=== PATIENT | female | born 1940 | race Caucasian/White ===

== ENCOUNTER 2018-12-29 08:50 | Inpatient (IN) ==
--- NOTE | 2018-12-12 16:07 | PAT Medication Instructions ---
Medication Instructions Date of Service December 12, 2018 Home Medications Prilocaine Cream 1 dose TOPICAL UD PRN acetaminophen [Acetaminophen Extra Strength] 1,000 mg PO UD PRN albuterol sulfate 1 - 2 puff INHALATION UD PRN baclofen 10 mg PO BID biotin 5,000 mcg PO DAILY cholecalciferol (vitamin D3) [Vitamin D3] 3,000 unit PO DAILY diphenhydramine HCl [Benadryl] 50 mg PO HS docusate sodium [Stool Softener] 100 mg PO BID duloxetine 60 mg PO QAM furosemide 80 mg PO BID gabapentin 100 mg PO BID gabapentin 600 mg PO BID insulin aspart U-100 [Novolog PenFill U-100 Insulin] 1 sliding scale dose SUBCUT USEASDIRECTD insulin glargine [Lantus Solostar U-100 Insulin] 70 unit SUBCUT QAM lidocaine 1 applic TOPICAL UD PRN metoprolol tartrate 12.5 mg PO BID mirtazapine 7.5 mg PO HS nitroglycerin 0.4 mg SUBLINGUAL UD PRN oxycodone-acetaminophen 1 tab PO TID PRN polyethylene glycol 3350 [Miralax] 17 g PO DAILY potassium chloride 8 meq PO BID prochlorperazine maleate 5 mg PO UD PRN simvastatin 40 mg PO HS trazodone 50 mg PO HS Continue as directed nitroglycerin 0.4 mg SUBLINGUAL UD PRN (if needed) STOP taking 2 weeks before surgery (or as soon as possible if surgery is within 2 weeks) biotin 5,000 mcg PO DAILY STOP taking 24 hours before surgery Prilocaine Cream 1 dose TOPICAL UD PRN lidocaine 1 applic TOPICAL UD PRN DO NOT take the morning of surgery baclofen 10 mg PO BID cholecalciferol (vitamin D3) [Vitamin D3] 3,000 unit PO DAILY docusate sodium [Stool Softener] 100 mg PO BID furosemide 80 mg PO BID insulin aspart U-100 [Novolog PenFill U-100 Insulin] 1 sliding scale dose SUBCUT USEASDIRECTD polyethylene glycol 3350 [Miralax] 17 g PO DAILY potassium chloride 8 meq PO BID Take morning of surgery With a small sip of water, OTHERWISE NOTHING TO EAT OR DRINK AFTER MIDNIGHT: acetaminophen [Acetaminophen Extra Strength] 1,000 mg PO UD PRN (if needed) albuterol sulfate 1 - 2 puff INHALATION UD PRN (use if needed; please bring with you to hospital day of surgery if possible) duloxetine 60 mg PO QAM gabapentin 100 mg PO BID gabapentin 600 mg PO BID metoprolol tartrate 12.5 mg PO BID oxycodone-acetaminophen 1 tab PO TID PRN (okay to take up to 4 hours prior to surgery if needed) prochlorperazine maleate 5 mg PO UD PRN (if needed) Take evening before surgery acetaminophen [Acetaminophen Extra Strength] 1,000 mg PO UD PRN (if needed) albuterol sulfate 1 - 2 puff INHALATION UD PRN (if needed) baclofen 10 mg PO BID diphenhydramine HCl [Benadryl] 50 mg PO HS docusate sodium [Stool Softener] 100 mg PO BID furosemide 80 mg PO BID gabapentin 100 mg PO BID gabapentin 600 mg PO BID insulin aspart U-100 [Novolog PenFill U-100 Insulin] 1 sliding scale dose SUBCUT USEASDIRECTD metoprolol tartrate 12.5 mg PO BID mirtazapine 7.5 mg PO HS oxycodone-acetaminophen 1 tab PO TID PRN (okay to take up to 4 hours prior to surgery if needed) potassium chloride 8 meq PO BID prochlorperazine maleate 5 mg PO UD PRN (if needed) simvastatin 40 mg PO HS trazodone 50 mg PO HS Insulin Dependent Diabetic Patients * Test your blood sugar the morning of surgery * If Blood Sugar is GREATER THAN 150, take HALF of your regular dose of: insulin glargine [Lantus Solostar U-100 Insulin] 70 unit SUBCUT QAM (take 35 units) * If Blood Sugar is LESS THAN 150, DO NOT TAKE ANY:insulin glargine [Lantus Solostar U-100 Insulin] 70 unit SUBCUT QAM (take 35 units) Other Notes If you have any questions please call us at [phone] or [phone] or [phone] or [phone]
--- NOTE | 2018-12-15 13:07 | Anesthesiology Consultation ---
Date of Service December 15, 2018 Assessment & Plan (1) Encounter for pre-operative examination: - Cardiology: 12/02/18: "Overall stable today from a cardiac perspective. She has no new cardiac issues in the interval. With continue her current cardiac me dications. No medication changes were recommended today. She has upcoming back surgery with Dr. Gutierrez at [facility] and she is cleared to move ahead with this procedure. " - Check [facility] AM DOS Chart Review Chart Review: Pending: Refer to Additional Notes / Consult section (pending preop testing (labs)) and Patient seen in Pre Admission Testing Teaching & Discussion Pre-Anesthesia Teaching/Discussion Notes: Instructed NPO after midnight before surgery,except medications with 15 cc of water. Medication instructions provided according to the PAT guidelines. History Surgery Operation Date: 12/29/18 07:45 Proposed Procedures p L2-L3, L3-L4 Transforaminal Lumbar Interbody Fusion with Spinal Cord Monitoring - Adan Gutierrez, DO Height/Weight Height: 5 ft Weight: 64.7 kg Allergies Allergy/AdvReac Type Severity Reaction Status Date / Time Bactrim Allergy Unknown RASH Verified 07/01/14 05:51 capsaicin Allergy Unknown localized Verified 12/15/18 13:28 swelling and SOB diclofenac Allergy Unknown localized Verified 12/15/18 13:28 swelling and SOB Diclopak Allergy Unknown localized Verified 07/01/14 05:51 SWELLING and SOB iodine Allergy Unknown skin Verified 12/15/18 13:28 blisters isopropyl alcohol Allergy Unknown localized Verified 12/15/18 13:28 swelling and SOB methylprednisolone Allergy Unknown swelling, Verified 12/15/18 13:28 SOB, rash Penicillins Allergy Unknown rash, Verified 12/15/18 13:28 swelling, trouble breathing pregabalin Allergy Unknown airway Verified 12/10/18 15:31 swelling propranolol Allergy Unknown RASH Verified 12/10/18 15:31 propylene glycol Allergy Unknown localized Verified 12/15/18 13:28 swelling and SOB shellfish derived Allergy Unknown airway Verified 12/15/18 13:28 swelling, n/v sulfamethoxazole Allergy Unknown RASH Verified 12/10/18 15:31 tetracycline Allergy Unknown RED RASH Verified 12/10/18 15:31 trimethoprim Allergy Unknown RASH Verified 12/10/18 15:31 verapamil Allergy Unknown RASH Verified 12/10/18 15:31 aspirin AdvReac Unknown n/v Verified 12/10/18 15:31 codeine AdvReac Unknown n/v Verified 12/10/18 15:31 morphine AdvReac Unknown headache, Verified 12/15/18 13:28 nausea NSAIDS (Non-Steroidal AdvReac Unknown advised to Verified 12/15/18 13:28 Anti-Inflamma avoid- CKD stage III A&D OINMENT Allergy Unknown SWELLING Uncoded 12/10/18 15:31 AND HIVES CLEANING SUPPLIES Allergy Unknown RASH Uncoded 12/10/18 15:32 SOAPS Allergy Unknown RASH Uncoded 12/10/18 15:31 STEROIDS Allergy Unknown SWELLING, Uncoded 12/10/18 16:23 SOB AND RASH Medications Home Medications Medication Instructions Recorded Confirmed Last Taken Prilocaine Cream 1 dose TOPICAL UD PRN 12/10/18 12/10/18 Unknown acetaminophen [Acetaminophen Extra 1,000 mg PO UD PRN 12/10/18 12/10/18 Unknown Strength] albuterol sulfate 1 - 2 puff INHALATION UD PRN 12/10/18 12/10/18 Unknown baclofen 10 mg PO BID 12/10/18 12/10/18 Unknown biotin 5,000 mcg PO DAILY 12/10/18 12/10/18 Unknown cholecalciferol (vitamin D3) 3,000 unit PO DAILY 12/10/18 12/10/18 Unknown [Vitamin D3] diphenhydramine HCl [Benadryl] 50 mg PO HS 12/10/18 12/10/18 Unknown docusate sodium [Stool Softener] 100 mg PO BID 12/10/18 12/10/18 Unknown duloxetine 60 mg PO QAM 12/10/18 12/10/18 Unknown furosemide 80 mg PO BID 12/10/18 12/10/18 Unknown gabapentin 100 mg PO BID 12/10/18 12/10/18 Unknown gabapentin 600 mg PO BID 12/10/18 12/10/18 Unknown insulin aspart U-100 [Novolog 1 sliding scale dose SUBCUT 12/10/18 12/10/18 Unknown PenFill U-100 Insulin] USEASDIRECTD insulin glargine [Lantus Solostar 70 unit SUBCUT QAM 12/10/18 12/10/18 12/10/18 U-100 Insulin] lidocaine 1 applic TOPICAL UD PRN 12/10/18 12/10/18 Unknown metoprolol tartrate 12.5 mg PO BID 12/10/18 12/10/18 Unknown mirtazapine 7.5 mg PO HS 12/10/18 12/10/18 Unknown nitroglycerin 0.4 mg SUBLINGUAL UD PRN 12/10/18 12/10/18 Unknown oxycodone-acetaminophen 1 tab PO TID PRN 12/10/18 12/10/18 Unknown polyethylene glycol 3350 [Miralax] 17 g PO DAILY 12/10/18 12/10/18 Unknown potassium chloride 8 meq PO BID 12/10/18 12/10/18 Unknown prochlorperazine maleate 5 mg PO UD PRN 12/10/18 12/10/18 Unknown simvastatin 40 mg PO HS 12/10/18 12/10/18 Unknown trazodone 50 mg PO HS 12/10/18 12/10/18 Unknown Past Medical History Medical History Asthma stable CAD (coronary artery disease) non-obstructive COPD (chronic obstructive pulmonary disease) stable Diabetes Hiatal hernia History of hysterectomy History of pancreatitis years ago s/p colon resection History of pulmonary embolism ?2007 Hyperlipidemia Hypertension Neuropathy B/L RLE, toes Scoliosis Spinal stenosis Stage 3 chronic kidney disease Past Family History Family History Son Family history of diabetes mellitus in daughter Son Family history of diabetes mellitus in daughter Past Surgical History Surgical History History of back surgery MULTIPLE FUSIONS History of cardiac cath X3; MOST RECENT : 2014= NO STENTS History of cardiac radiofrequency ablation History of cholecystectomy History of colon resection 2/2 multiple colon polyps History of colonoscopy History of endoscopy History of hernia surgery History of neck surgery "BONE" EXCISION History of shoulder surgery X2 LEFT History of surgery PAIN PUMP AND SINCE REMOVED History of surgery on right wrist X7 History of tubal ligation Social History Smoking Status: Former smoker Do You Dip or Chew Tobacco: No Smoking End Date: QUIT 2004 Hx Alcohol Use: No substance use type: prescription drug Review of Systems Rare coughing, wheezing felt r/t asthma. Patient denies chest pain, shortness of breath, palpitations. Physical Exam Vital Signs VITALS BP 130/70 P 68 TEMP 98.3 SP02 94%RA RESP 18 PHYSICAL Mildly decreased cervical extension s/p cervical surgery/+cervicalgia Full TMJ range of motion. TMD 3 finger breaths Mallampati Score 1 Dentition: full dentures upper/lower; edentulous Lungs: diminished breath sounds Cardiac: regular rate and rhythm, I/ systolic murmur Spine: normal Carotid arteries: negative bruit Extremities: no edema Testing Electrocardiogram Date: 12/02/18 SR with occasional PAC's. Stress Test Date: 10/27/15 Type: DSE DSE "normal" without resting LV wall motion abnormalities or inducible ischemia. 97% MPHR. No significant arrhythmias noted. Rest EF 65%. Mild AV sclerosis. Mild mitral annular calcification. Cardiac Catheterization Date: 10/13/14 Left main angiographically normal. Mild to moderate intimal disease of the mid to distal cx, LAD. 20-30% stenosis proximal and mid RCA. Nonobstructive coronary disease. Noncardiac chest pain. Other Testing Chest CT: 09/10/18: Right upper lobe calcified granuloma along the major fissure. Left lower lobe punctate calcified granuloma. No suspicious pulmonary nodules. Large airways patent. Anterolisthesis of L4 on L5. Mild levoscoliosis of the lumbar segment. No findings to explain epigastric pain. No suspicious pulmonary nodules.
[2018-12-15 15:43] LABS: Basophils # (auto) 0.03 K/uL (0-0.2); Basophils % (auto) 0.4 %; Eosinophils # (auto) 0.25 K/uL (0-0.5); Eosinophils % (auto) 3.5 %; Hematocrit (blood only) 37.3 % (37-47); Hemoglobin 12.2 g/dL (12.0-16.0); Immature Granulocytes # (auto) 0.02 K/uL (0.00-0.02); Immature Granulocytes % (auto) 0.3 %; Lymphocytes # (auto) 3.56 K/uL (1.2-3.4); Lymphocytes % (auto) 49.3 %; Mean Corpuscular Hemoglobin 31.7 pg (25-34); Mean Corpuscular Hgb Conc 32.7 g/dL (32-36); Mean Corpuscular Volume 96.9 fL (80-100); Mean Platelet Volume 10.1 fL (7.4-10.4); Monocytes # (auto) 0.73 K/uL (0.11-0.59); Monocytes % (auto) 10.1 %; Neutrophils # (auto) 2.63 K/uL (1.4-6.5); Neutrophils % (auto) 36.4 %; Platelet Count 182 K/uL (130-400); RDW Coefficient of Variation 13.1 % (11.5-14.5); Red Blood Count 3.85 M/uL (4.2-5.4); White Blood Count 7.22 K/uL (4.8-10.8)
[2018-12-15 15:44] LABS: BUN Creatinine Ratio 16.9 (10-20); Creatinine Clr Calc Pharmacy 29.5 ml/min; Est GFR (African American) 44.2; Est GFR (Non-African American) 38.1; Potassium 3.9 mmol/L (3.5-5.1)
[2018-12-15 15:51] LABS: Partial Thromboplastin Ratio 0.8; Partial Thromboplastin Time 22.8 Seconds (21.0-31.0); Prothrombin Time 10.2 Seconds (9.0-12.0)
[2018-12-15 16:06] LABS: Appearance Urine Clear (Clear); Bacteria Urine Automated Negative (Negative); Bilirubin Urine Negative (Negative); Blood Urine Negative (Negative); Cast Urine Automated 0 /lpf (0-5); Color Urine Yellow; Epithelial Cell Urine Auto 0-5 /lpf (0-5); Glucose Urine UA Trace (Negative); Ketones Urine Negative (Negative); Leukocyte Esterase Urine Trace (Negative); Nitrite Urine Negative (Negative); Protein Urine Negative (Negative); RBC Urine Automated 0-4 /hpf (0-4); Specific Gravity Urine 1.011 (1.000-1.030); Urobilinogen Urine Negative (Negative)
[2018-12-16 05:42] LABS: Estimated Average Glucose 206 mg/dl; Hemoglobin A1C 8.8 % (4.5-5.6)
[~2018-12-29 08:50] MED LIST: CEFAZOLIN 1000MG 1,000 MG/7.5 ML SYR IV SCH; CLINDAMYCIN 600 MG/54 ML BAG IV SCH; CeleBREX 200 MG CAP PO SCH; GABAPENTIN 300 MG CAP PO SCH; LR 15ML/HR IV SCH
[2018-12-29] MEDS ORDERED: HYDROmorphone INJ 2 MG/ML SYR/VIAL ONE (09:14)
[2018-12-29] MEDS ORDERED: fentaNYL citrate 100 MCG/2 ML VIAL ONE (09:14)
[2018-12-29] MEDS ORDERED: KETAMINE HCL INJ 50 MG/ML 10 ML VIAL ONE (09:14)
[2018-12-29] MEDS ORDERED: ROCURONIUM BROMIDE 10 MG/ML 5 ML VIAL ONE (09:17)
[2018-12-29] MEDS ORDERED: PROPOFOL IV EMULSION 10 MG/ML 20 ML VIAL IV ONE (09:17)
[2018-12-29] MEDS ORDERED: NEOSTIGMINE METHYLSULFATE 1 MG/ML 10ML VIAL ONE (09:17)
[2018-12-29] MEDS ORDERED: GLYCOPYRROLATE 0.2 MG/ML VIAL ONE (09:17)
[2018-12-29] MEDS ORDERED: LIDOCAINE HCL 2% 2 ML VIAL/AMP(20MG/ML) INFIL ONE (09:17)
[2018-12-29] MEDS ORDERED: ONDANSETRON INJ 2 MG/ML 2 ML VIAL ONE (09:17)
--- NOTE | 2018-12-29 09:38 | History & Physical Bridge Note ---
Date of Service December 29, 2018 History & Physical Bridge Note I have examined the patient, reviewed the History & Physical and in the interval since the performance of the History & Physical I have noted the following changes of clinical significance: no changes noted
--- NOTE | 2018-12-29 09:39 | History & Physical Report ---
Date of Service December 29, 2018 Assessment & Plan (1) Spinal stenosis, lumbar region with neurogenic claudication: Transforaminal lumbar interbody fusion L2-L4. Present on Admission?: Yes History of Present Illness Chief Complaint: Back and leg pain Primary Care Provider: Elana Whittington MD This is a 78-year-old female who presents with chronic persistent back and leg pain. Failing extensive course of nonoperative care is here for surgical intervention. Allergies Allergy/AdvReac Type Severity Reaction Status Date / Time Bactrim Allergy Unknown RASH Verified 07/01/14 05:51 capsaicin Allergy Unknown localized Verified 12/29/18 09:31 swelling and SOB diclofenac Allergy Unknown localized Verified 12/29/18 09:31 swelling and SOB Diclopak Allergy Unknown localized Verified 07/01/14 05:51 SWELLING and SOB iodine Allergy Unknown skin Verified 12/29/18 09:31 blisters isopropyl alcohol Allergy Unknown localized Verified 12/29/18 09:31 swelling and SOB methylprednisolone Allergy Unknown swelling, Verified 12/29/18 09:31 SOB, rash Penicillins Allergy Unknown rash, Verified 12/29/18 09:31 swelling, trouble breathing pregabalin Allergy Unknown airway Verified 12/29/18 09:31 swelling propranolol Allergy Unknown RASH Verified 12/29/18 09:31 propylene glycol Allergy Unknown localized Verified 12/29/18 09:31 swelling and SOB shellfish derived Allergy Unknown airway Verified 12/29/18 09:31 swelling, n/v sulfamethoxazole Allergy Unknown RASH Verified 12/29/18 09:31 tetracycline Allergy Unknown RED RASH Verified 12/29/18 09:31 trimethoprim Allergy Unknown RASH Verified 12/29/18 09:31 verapamil Allergy Unknown RASH Verified 12/29/18 09:31 aspirin AdvReac Unknown n/v Verified 12/29/18 09:31 codeine AdvReac Unknown n/v Verified 12/29/18 09:31 morphine AdvReac Unknown headache, Verified 12/29/18 09:31 nausea NSAIDS (Non-Steroidal AdvReac Unknown advised to Verified 12/29/18 09:31 Anti-Inflamma avoid- CKD stage III A&D OINMENT Allergy Unknown SWELLING Uncoded 12/29/18 09:31 AND HIVES CLEANING SUPPLIES Allergy Unknown RASH Uncoded 12/29/18 09:31 SOAPS Allergy Unknown RASH Uncoded 12/29/18 09:31 STEROIDS Allergy Unknown SWELLING, Uncoded 12/29/18 09:31 SOB AND RASH Home Medications Home Medications Medication Instructions Recorded Confirmed Type Prilocaine Cream 1 dose TOPICAL UD PRN 12/10/18 12/10/18 History acetaminophen [Acetaminophen Extra 1,000 mg PO UD PRN 12/10/18 12/10/18 History Strength] albuterol sulfate 1 - 2 puff INHALATION UD PRN 12/10/18 12/10/18 History baclofen 10 mg PO BID 12/10/18 12/10/18 History biotin 5,000 mcg PO DAILY 12/10/18 12/10/18 History cholecalciferol (vitamin D3) 3,000 unit PO DAILY 12/10/18 12/10/18 History [Vitamin D3] diphenhydramine HCl [Benadryl] 50 mg PO HS 12/10/18 12/10/18 History docusate sodium [Stool Softener] 100 mg PO BID 12/10/18 12/10/18 History duloxetine 60 mg PO QAM 12/10/18 12/10/18 History furosemide 80 mg PO BID 12/10/18 12/10/18 History gabapentin 100 mg PO BID 12/10/18 12/10/18 History gabapentin 600 mg PO BID 12/10/18 12/10/18 History insulin aspart U-100 [Novolog 1 sliding scale dose SUBCUT 12/10/18 12/10/18 History PenFill U-100 Insulin] USEASDIRECTD insulin glargine [Lantus Solostar 70 unit SUBCUT QAM 12/10/18 12/10/18 History U-100 Insulin] lidocaine 1 applic TOPICAL UD PRN 12/10/18 12/10/18 History metoprolol tartrate 12.5 mg PO BID 12/10/18 12/10/18 History mirtazapine 7.5 mg PO HS 12/10/18 12/10/18 History nitroglycerin 0.4 mg SUBLINGUAL UD PRN 12/10/18 12/10/18 History oxycodone-acetaminophen 1 tab PO TID PRN 12/10/18 12/10/18 History polyethylene glycol 3350 [Miralax] 17 g PO DAILY 12/10/18 12/10/18 History potassium chloride 8 meq PO BID 12/10/18 12/10/18 History prochlorperazine maleate 5 mg PO UD PRN 12/10/18 12/10/18 History simvastatin 40 mg PO HS 12/10/18 12/10/18 History trazodone 50 mg PO HS 12/10/18 12/10/18 History Past Med/Surg History Family History Son Family history of diabetes mellitus in daughter Son Family history of diabetes mellitus in daughter Social History Preferred Language: Palestinian Communication Ability: Effective Shade Bander Required: No Beliefs That Will Affect Care: None Current Living Situation: Alone Other Information That Helps Us Care for You: No Feels Safe at Home: Yes Smoking Status: Former smoker Do You Dip or Chew Tobacco: No ; Smoking End Date: QUIT 2004 ; Hx Alcohol Use: No Physical Exam Physical Exam: Patient is alert and oriented neurologically intact.
[2018-12-29] MEDS ORDERED: BACITRACIN INJ 50,000 UNIT VIAL ONE (09:44)
[2018-12-29] MEDS ORDERED: BUPIVACAINE/EPINEPHRINE 0.5% MPF 1:200,000 30 ML VIAL ONE (09:44)
[2018-12-29] MEDS: ACETAMINOPHEN 500 MG TAB PO SCH ×2 (10:05→19:23)
[2018-12-29] MEDS ORDERED: ATROPINE SULFATE 0.1 MG/ML 10ML SYR IV PRN (10:47)
[2018-12-29] MEDS ORDERED: LABETALOL HCL IV 5 MG/ML 20ML IV PRN (10:47)
[2018-12-29] MEDS ORDERED: PHENYLEPHRINE 100MCG/ML 5ML SYR IV PRN (10:47)
[2018-12-29] MEDS ORDERED: ePHEDrine sulfate 50 MG/ML AMP IV PRN (10:47)
[2018-12-29] MEDS ORDERED: MEPERIDINE HCL 25 MG/ML CARP IV PRN (10:47)
[2018-12-29] MEDS ORDERED: ONDANSETRON INJ 2 MG/ML 2 ML VIAL IV PRN (10:47)
[2018-12-29] MEDS ORDERED: FLOSEAL HEMOSTATIC MATRIX 10ML TOP ONE (10:53)
--- NOTE | 2018-12-29 12:11 | Operative Report ---
Post Operative Report Pre & Post Diagnosis Operation Date: 12/29/18 10:25 Pre-Op Diagnosis: Spinal stenosis, lumbar region with neurogenic claudication Post-Op Diagnosis: Spinal stenosis, lumbar region with neurogenic claudication I identified the patient and participated in the time-out.: Yes Procedure Operation Date: 12/29/18 10:25 Actual Procedures #1 lumbar decompression with bilateral medial facetectomies and foraminotomies L1-L2 L2-L3 L3-4. #2 posterior spinal fusion L2-3 L3-4. #3 placement posterior instrumentation L2-3 L3-4. #4 placement of locally harvested morselized autograft in the posterior lateral gutters. #5 placement infuse collagen sponge combined master graft in the posterior lateral gutters. Surgeon Adan Gutierrez DO Solid Waste Disposal Manager Donita Mitchell Estimated Blood Loss 100 Findings Consistent with Post-Op Diagnosis Specimens None Indications This is a 78-year-old female presents with above-mentioned diagnosis after failing extensive course of nonoperative care is here for surgical intervention. Description of Procedure Patient was met with identified and informed consent obtained. Patient was then taken to the operative suite underwent intubation placed in the prone position on the Jean-Paul table on top of the Jeramy frame. All bony prominences well- padded eyes inspected to ensure no external pressure placed upon the peer at this point the lumbar spine was prepped and draped in normal sterile fashion. Sharp dissection with the assistance of Bovie cautery was performed down to and exposing the lamina and transverse processes of L2-L3-L4 bilaterally. From a caudal cephalad fashion complete laminectomy of L3 L2 and partial laminectomy of L1 was performed including bilateral medial facetectomies and foraminotomies addressing all stenosis. Pedicle screws were then placed in L2-L3-L4 bilaterally with assistance of fluoroscopy and appropriately size iris locked into position. Transverse processes of L2-L3-L4 were then burred to subcortical bleeding bone. Infuse collagen sponge master graft and local autograft was placed in the posterior lateral gutters. Approximately 1 cc of DuraSeal was placed prophylactically over a very thin area of the dura. A 15 round YENI drain was then inserted. The incision was closed with 1 Vicryl in the fascia 2-0 Vicryl substantially and 4-0 Monocryl for final skin closure. Steri-Strip sterile dressings placed. Patient will continue to PACU stable condition. Please note Donita Mitchell present all the entire procedure involved the patient positioning complex portions of the surgery and final skin closure. Lastly spinal cord monitoring was utilized that the procedure no changes noted. I attest to the content of the Intraoperative Record and any orders documented therein. Any exceptions are noted below.
--- NOTE | 2018-12-29 12:40 | Fluoroscopy Report ---
LUMBAR SPINE, INTRAOPERATIVE FLUOROSCOPY HISTORY: L2-L4 decompression and fusion. FLUOROSCOPY TIME: 29 seconds. FINDINGS: Intraoperative fluoroscopy was provided for the lumbar spine. 2 fluoroscopic spot images we re obtained. Posterior decompression fusion from L2 through L4 with pedicle screws and rods. The hard prince appears intact. There is evidence for an L1 vertebroplasty. IMPRESSION: Fluoroscopy provided for a L2-L4 posterior decompression and fusion. Electronically signed by: Chuck Felton M.D. 12/29/2018 12:38 PM
[2018-12-29] MEDS: fentaNYL citrate 100 MCG/2 ML VIAL IV PRN ×4 (13:05→13:20)
--- NOTE | 2018-12-29 13:20 | Anesthesiology Progress Note ---
Date of Service December 29, 2018 Anesthesia Post Procedure Vital Signs Vital Signs: Temp Pulse Pulse Resp BP Pulse Ox 12/29/18 13:15 87 16 153/56 H 93 12/29/18 13:05 36.6 C 93 H 16 154/82 H 94 12/29/18 12:55 81 16 151/65 H 100 12/29/18 12:45 80 17 151/62 H 100 12/29/18 12:35 81 16 149/60 H 100 12/29/18 12:29 36.4 C L 87 15 177/72 H 100 12/29/18 09:41 36.6 C 95 H 20 182/80 H 95 Pain Intensity Right Neck: Pain Intensity: 3 Back: Pain Intensity: 3 Transfer of Care Handoff Completed per policy Notes Mental Status: alert / awake / arousable Patient Amnestic to Procedure: Yes Nausea / Vomiting: adequately controlled Pain: adequately controlled Airway Patency, RR, SpO2: stable & adequate BP & HR: stable & adequate Hydration State: stable & adequate Anesthetic Complications: no major complications apparent and Pt Satisfied with anesthetic care
[2018-12-29] MEDS ORDERED: MAGNESIUM HYDROXIDE SUSP 30 ML UDC PO PRN (14:09)
[2018-12-29] MEDS ORDERED: ONDANSETRON 4 MG TAB PO PRN (14:09)
[2018-12-29] MEDS ORDERED: SOD PHOSPHATE/SOD BIPHOSPHATE ENEMA 132 ML BTL PR PRN (14:09)
[2018-12-29] MEDS ORDERED: METOCLOPRAMIDE HCL INJ 5 MG/ML 2 ML VIAL IV PRN (14:09)
[2018-12-29] MEDS ORDERED: PROMETHAZINE HCL 12.5 MG in SODIUM CHLORIDE 0.9% 50 ML IV PRN (14:09)
[2018-12-29] MEDS ORDERED: PROCHLORPERAZINE MALEATE 5 MG TAB PO PRN (14:09)
[2018-12-29] MEDS ORDERED: ACETAMINOPHEN 1,000 MG/100 ML VIAL IV PRN (14:09)
[2018-12-29] MEDS ORDERED: FAMOTIDINE 20 MG TAB PO PRN (14:09)
[2018-12-29] MEDS ORDERED: NALOXONE HCL 0.4 MG/1 ML VIAL/CARP IV PRN (14:09)
[2018-12-29] MEDS ORDERED: DO NOT ADMINISTER FLU VACCINE PRN (14:09)
[2018-12-29] MEDS ORDERED: HYDROmorphone INJ 0.5 MG/0.5 ML SYR IV PRN (14:09)
[2018-12-29] MEDS ORDERED: LORazepam 0.5 MG/1 ML VIAL IV PRN (14:09)
[2018-12-29] MEDS ORDERED: NITROGLYCERIN SL 0.4 MG/TAB TAB SL PRN (14:09)
[2018-12-29] MEDS ORDERED: ALUMINUM/MAGNESIUM SUSP 30 ML UDC PO PRN (14:09)
[2018-12-29] MEDS ORDERED: TRAMADOL HCL 50 MG TABLET PO PRN (14:09)
[2018-12-29] MEDS ORDERED: DO NOT ADMINISTER PNEUMOCOCCAL VACCINE PRN (14:09)
[2018-12-29] MEDS: OXYCODONE HCL IR 5 MG TAB (IMMEDIATE RELEASE) PO PRN ×3 (14:29→23:31)
[2018-12-29] MEDS: SODIUM CHLORIDE 0.9% 1000ML 1,000 ML IV SCH (14:30)
--- NOTE | 2018-12-29 15:28 | Hospitalist Consultation ---
Date of Consultation December 29, 2018 Assessment & Plan (1) Spinal stenosis, lumbar region with neurogenic claudication: s/p lumbar decompression/fusion today by Dr. Gutierrez - post-operative management per primary service including pain control, PT/OT, DVT prophylaxis (2) Chronic diastolic CHF (congestive heart failure): Pt reports cardiology instructed her to decrease her furosemide to once daily at last visit but this is not confirmed upon review of last cardiology note. However, pt states that she has only been taking once daily at home and she denies symptoms of volume overload. - Continue furosemide 80 mg once daily for now - Decrease IVF to 60 cc/hr to prevent volume overload - would recommend d/c completely once tolerating oral intake (3) Esophageal reflux disease: Pt reports that she manages with diet modification (avoidance of trigger foods) - Started on Pepcid per primary service - does not take anything consistently at home (4) Dyslipidemia: - Continue outpatient statin (simvastatin 40 mg daily) (5) Diabetic neuropathy: - Continue gabapentin 700 mg BID as taken outpatient (6) Insulin-requiring or dependent type II diabetes mellitus: It is unclear at the present how consistently pt is taking her insulin and what dose. It is also unclear what her diet typically contains although she does report that it is often sugary cereal. Will start at lower dose of basal insulin and titrate up as needed. Diabetic modifier added to diet. Last A1c on 11/28/18 was 8.8 - Start Lantus 11 units BID - Sliding scale short-acting insulin - Check BSG ACHS (7) Hypertension: - Continue outpatient metoprolol BID and monitor - well-controlled at present (8) COPD (chronic obstructive pulmonary disease): Currently well-controlled - Resume prn albuterol inhaler as taken at home - not on maintenance inhalers (9) Stage 3 chronic kidney disease: Upon review of outpatient labs, baselined creatinine appears to be 1.3- 1.4. Will monitor closely post-operative. Pt currently receiving gentle IVF. - Check BMP in AM Patient seen and examined with collaborating physician, Dr. Johnston. Plan of care discussed and as outlined above. Thank you for this consultation. We will continue to follow the patient with you. A member of the [facility] Hospitalist team is available 24/09 at [phone] for any questions or concerns. J. Renée, PA-C Supervising Physician Co-Signing Physician Notes I have seen and examined the patient and have discussed the case with the provider above. I agree with the assessment and plan as stated. The patient is feeling somewhat nautious and reporting some feelings of post nasal drip which is better with carbonated beverages. She denies any medications at this time. Physical exam is unremarkable and my findings are reflected in physical exam report above. Blood sugar is at goal. Cont current medical management. Thank you for this consultation. We will continue to follow her throughout her hospitalization. DO Preston History of Present Illness Reason for Consultation: Post-operative medical management Attending Physician: Adan Gutierrez DO History of Present Illness This is a 78 y/o female with a PMH of insulin-requiring DM, CKD3, COPD, dyslipidemia, GERD, hypertension, SVT s/p ablation, stress-induced cardiomyopathy, chronic diastolic CHF, and CAD who underwent lumbar decompression/fusion by Dr. Gutierrez today for chronic lower back pain that failed conservative management. Pt reports years of ongoing lower back pain that may r adiate into either leg but right > left. She has multiple allergies limiting medication options for pain control. She is on several medications for her chronic pain at present but reports pain limits her ability to complete ADLs and keeps her awake most nights. She states that she does have home nursing services four hours per day six days per week. She also has a son in the area who helps her when he can. She also c/o numbness and tingling in lower extremities that is a chronic issue but she is unsure what is related to her back issues vs to diabetic neuropathy. Per her report, she checks her blood sugar four times per day but they are labile. She reports lows at night down to the 50s at times. Fasting sugar in the AM may be 100-200. Post-prandial sugars reportedly 200-300. States that she thinks her prescribed dose of Lantus of 70 units daily is too high so she is only taking 50 units daily. Using a Novolog sliding scale for sugars over 200. Reports that her diet is very limited due to multiple foods causing bloating and epigastric pain so she mainly eats cereal, often "fruity brianda or cocoa brianda." Currently pain is seen post- operatively on the floor. She reports her back pain is "no better, no worse" than before surgery. No pain in her legs at present. She feels the urge to urinate but still has a Emery catheter in place. She is asking when she can get out of bed and move around. She has not had anything to eat since surgery but reports that she would like to try something. Allergies Allergy/AdvReac Type Severity Reaction Status Date / Time Bactrim Allergy Unknown RASH Verified 07/01/14 05:51 capsaicin Allergy Unknown localized Verified 12/29/18 09:31 swelling and SOB diclofenac Allergy Unknown localized Verified 12/29/18 09:31 swelling and SOB Diclopak Allergy Unknown localized Verified 07/01/14 05:51 SWELLING and SOB iodine Allergy Unknown skin Verified 12/29/18 09:31 blisters isopropyl alcohol Allergy Unknown localized Verified 12/29/18 09:31 swelling and SOB methylprednisolone Allergy Unknown swelling, Verified 12/29/18 09:31 SOB, rash Penicillins Allergy Unknown rash, Verified 12/29/18 09:31 swelling, trouble breathing pregabalin Allergy Unknown airway Verified 12/29/18 09:31 swelling propranolol Allergy Unknown RASH Verified 12/29/18 09:31 propylene glycol Allergy Unknown localized Verified 12/29/18 09:31 swelling and SOB shellfish derived Allergy Unknown airway Verified 12/29/18 09:31 swelling, n/v sulfamethoxazole Allergy Unknown RASH Verified 12/29/18 09:31 tetracycline Allergy Unknown RED RASH Verified 12/29/18 09:31 trimethoprim Allergy Unknown RASH Verified 12/29/18 09:31 verapamil Allergy Unknown RASH Verified 12/29/18 09:31 aspirin AdvReac Unknown n/v Verified 12/29/18 09:31 codeine AdvReac Unknown n/v Verified 12/29/18 09:31 morphine AdvReac Unknown headache, Verified 12/29/18 09:31 nausea NSAIDS (Non-Steroidal AdvReac Unknown advised to Verified 12/29/18 09:31 Anti-Inflamma avoid- CKD stage III A&D OINMENT Allergy Unknown SWELLING Uncoded 12/29/18 09:31 AND HIVES CLEAN[employer]PPLIES Allergy Unknown RASH Uncoded 12/29/18 09:31 SOAPS Allergy Unknown RASH Uncoded 12/29/18 09:31 STEROIDS Allergy Unknown SWELLING, Uncoded 12/29/18 09:31 SOB AND RASH Home Medications Home Medications Medication Instructions Recorded Confirmed Type acetaminophen [Acetaminophen Extra 1,000 mg PO UD PRN 12/10/18 12/29/18 History Strength] albuterol sulfate 1 - 2 puff INHALATION Q4H PRN 12/10/18 12/29/18 History baclofen 10 mg PO BID 12/10/18 12/29/18 History cholecalciferol (vitamin D3) 3,000 unit PO DAILY 12/10/18 12/29/18 History [Vitamin D3] diphenhydramine HCl [Benadryl] 50 mg PO HS 12/10/18 12/29/18 History docusate sodium [Stool Softener] 100 mg PO BID 12/10/18 12/29/18 History duloxetine 60 mg PO QAM 12/10/18 12/29/18 History furosemide 80 mg PO DAILY 12/10/18 12/29/18 History gabapentin 100 mg PO BID 12/10/18 12/29/18 History gabapentin 600 mg PO BID 12/10/18 12/29/18 History insulin aspart U-100 [Novolog 1 sliding scale dose SUBCUT 12/10/18 12/29/18 History PenFill U-100 Insulin] USEASDIRECTD insulin glargine [Lantus Solostar 50 unit SUBCUT QAM 12/10/18 12/29/18 History U-100 Insulin] lidocaine 1 applic TOPICAL UD PRN 12/10/18 12/29/18 History metoprolol tartrate 12.5 mg PO BID 12/10/18 12/29/18 History mirtazapine 7.5 mg PO HS 12/10/18 12/29/18 History nitroglycerin 0.4 mg SUBLINGUAL UD PRN 12/10/18 12/29/18 History oxycodone-acetaminophen 1 tab PO TID PRN 12/10/18 12/29/18 History polyethylene glycol 3350 [Miralax] 17 g PO DAILY PRN 12/10/18 12/29/18 History potassium chloride 8 meq PO BID 12/10/18 12/29/18 History prochlorperazine maleate 5 mg PO Q8H PRN 12/10/18 12/29/18 History simvastatin 40 mg PO HS 12/10/18 12/29/18 History trazodone 50 mg PO HS 12/10/18 12/29/18 History biotin 2 mg PO BID 12/29/18 12/29/18 History cyclosporine [Restasis] 1 drp OPB BID 12/29/18 12/29/18 History triamcinolone acetonide 1 applic TOPICAL BID PRN 12/29/18 12/29/18 History Patient History Surgical History History of back surgery MULTIPLE FUSIONS History of cardiac cath X3; MOST RECENT : 2014= NO STENTS History of cardiac radiofrequency ablation History of cholecystectomy History of colon resection 2/2 multiple colon polyps History of colonoscopy History of endoscopy History of hernia surgery History of hysterectomy History of neck surgery "BONE" EXCISION History of shoulder surgery X2 LEFT History of surgery PAIN PUMP AND SINCE REMOVED History of surgery on right wrist X7 History of tubal ligation Family History Son Brain tumor Coronary heart disease Brother COPD (chronic obstructive pulmonary disease) Coronary heart disease Sister COPD (chronic obstructive pulmonary disease) Social History Preferred Language: Barbadian Communication Ability: Effective Road Test Examiner Required: No Beliefs That Will Affect Care: None Current Living Situation: Alone Other Information That Helps Us Care for You: No Feels Safe at Home: Yes Smoking Status: Former smoker Do You Dip or Chew Tobacco: No ; Smoking End Date: QUIT 2004 ; Hx Alcohol Use: No Review of Systems Review of Systems: All systems reviewed & are unremarkable except as noted in HPI & below Constitutional: no fever, no chills, no sweats and no fatigue Eyes: no diplopia Ear, Nose, Mouth, Throat: no sore throat and no dysphagia Respiratory: + cough (occasional with clear sputum - none today); no dyspnea and no wheezing Cardiovascular: no chest pain, no palpitations and no edema Gastrointestinal: + abdominal pain (ongoing issues with intermittent epigastric pain) and + heartburn; no nausea, no vomiting and no change in bowel habits Genitourinary: Emery in place - has urge to urinate at present Musculoskeletal: as per Subjective / HPI and + back pain Integumentary: no rash and no skin ulcer Neurologic: + tingling, + numbness and + radiating pain; no seizure-like activity, no dizziness and no headache(s) Physical Exam Constitutional: WD/WN, vitals as above Eyes: + anicteric sclerae; no conjunctival abnormality ENMT: external ear and nose normal, oropharynx normal Neck: trachea midline Respiratory: normal respiratory effort, lungs clear to auscultation no respiratory distress, no labored breathing and does not use accessory muscles Cardiovascular: Rate/Rhythm: regular rate and regular rhythm Heart Sounds: + murmur Extremities: no pedal edema Gastrointestinal (Abdomen): Inspection/Auscultation: normal bowel sounds; abdomen not distended Percussion/Palpation: + abdomen tender (+epigastric tenderness) and abdomen soft Musculoskeletal: Head/Neck/Chest: normocephalic and head atraumatic Extremities: no cyanosis and no clubbing Plantarflexion 4/5 - limited due to pain Blast Furnace Keeper Helper strength 5/5 on left, 4/5 on right Skin: no rashes, warm and dry no jaundice Neurologic: moves all extremities Speech / Cognition: normal speech Diminished sensation to light touch in bilateral feet Psychiatric: A+Ox3, euthymic affect Results & Data Vital Signs (Past 12 Hours) Vital Signs Temp Pulse Pulse Resp BP Pulse Ox 12/29/18 14:13 82 19 139/70 95 12/29/18 13:49 36.6 C 91 H 18 146/68 H 100 12/29/18 13:30 90 16 149/61 H 97 12/29/18 13:15 87 16 153/56 H 93 12/29/18 13:05 36.6 C 93 H 16 154/82 H 94 12/29/18 12:55 81 16 151/65 H 100 12/29/18 12:45 80 17 151/62 H 100 12/29/18 12:35 81 16 149/60 H 100 12/29/18 12:29 36.4 C L 87 15 177/72 H 100 12/29/18 09:41 36.6 C 95 H 20 182/80 H 95 (1) Diabetic neuropathy Diabetes mellitus complication detail: diabetic polyneuropathy Diabetes mellitus type: type 2 Qualified Code(s): E11.42 - Type 2 diabetes mellitus with diabetic polyneuropathy (2) COPD (chronic obstructive pulmonary disease) COPD type: emphysema Emphysema type: unspecified Qualified Code(s): J43.9 - Emphysema, unspecified (3) Esophageal reflux disease Esophagitis presence: esophagitis presence not specified Qualified Code(s): K21.9 - Gastro-esophageal reflux disease without esophagitis (4) Hypertension Hypertension type: essential hypertension Qualified Code(s): I10 - Essential (primary) hypertension
[2018-12-29] MEDS ORDERED: TRIAMCINOLONE ACET 0.1% OINT 15 GM TUBE TOP PRN (15:30)
[2018-12-29] MEDS ORDERED: ALBUTEROL HFA 8 GM INHALER INH PRN (15:30)
[2018-12-29] MEDS ORDERED: GLUCOSE 10 TABS/TUBE PO PRN (15:31)
[2018-12-29] MEDS ORDERED: CARBOHYDRATES FOR HYPOGLYCEMIA PO PRN (15:31)
[2018-12-29] MEDS ORDERED: DEXTROSE 50% 50 ML SYRINGE IV PRN (15:31)
[2018-12-29] MEDS ORDERED: GLUCOSE 40% GEL 15 GM TUBE PO PRN (15:31)
[2018-12-29] MEDS ORDERED: GLUCAGON FOR INJ 1 MG VIAL SQ PRN (15:31)
[2018-12-29] MEDS: LORazepam 0.5 MG TAB PO PRN (16:52)
[2018-12-29] MEDS ORDERED: FUROSEMIDE 80 MG TAB PO SCH ×2 (17:00)
[2018-12-29] MEDS: ONDANSETRON INJ 2 MG/ML 2 ML VIAL IV PRN (18:10)
[2018-12-29] MEDS: CLINDAMYCIN 600 MG in DEXTROSE 5% 50 ML IV SCH (18:11)
[2018-12-29] MEDS: INSULIN ASPART 100 UNITS/ML 3 ML PEN SC SCH ×2 (18:14→20:49)
[2018-12-29] MEDS: METOPROLOL TARTRATE 25 MG TAB PO SCH (20:42)
[2018-12-29] MEDS: DOCUSATE SODIUM 100 MG CAP PO SCH (20:43)
[2018-12-29] MEDS: SIMVASTATIN 40 MG TAB PO SCH (20:44)
[2018-12-29] MEDS: BACLOFEN 10 MG TAB PO SCH (20:44)
[2018-12-29] MEDS: DOCUSATE SODIUM/SENNA 50/8.6MG TAB PO SCH (20:44)
[2018-12-29] MEDS: MIRTAZAPINE TAB 15 MG TAB PO SCH (20:45)
[2018-12-29] MEDS: TRAZODONE HCL 50 MG TAB PO SCH (20:45)
[2018-12-29] MEDS: GABAPENTIN 600 MG TAB PO SCH (20:45)
[2018-12-29] MEDS: GABAPENTIN 100 MG CAP PO SCH (20:46)
[2018-12-29] MEDS: cycloSPORINE (RESTASIS) OPB SCH (20:47)
[2018-12-29] MEDS: INSULIN GLARGINE SOLOSTAR 100 UNITS/ML 3 ML PEN SC SCH (20:49)
[2018-12-29] MEDS ORDERED: POTASSIUM CHLORIDE 20MEQ/15ML 473ML PO SCH (21:00)
[2018-12-29 22:00] LABS: Calcium 8.3 mg/dl (8.5-10.1); Creatinine Clr Calc Pharmacy 30.5 ml/min; Est GFR (African American) 46.3; Est GFR (Non-African American) 39.9; Magnesium 1.9 mg/dl (1.8-2.4); Potassium 3.6 mmol/L (3.5-5.1)
[2018-12-29] MEDS: POTASSIUM CHLORIDE 10 MEQ TABCR PO SCH (23:25)
[2018-12-30] MEDS: CLINDAMYCIN 600 MG in DEXTROSE 5% 50 ML IV SCH (02:10)
[2018-12-30] MEDS: ONDANSETRON INJ 2 MG/ML 2 ML VIAL IV PRN ×2 (04:52→20:29)
[2018-12-30] MEDS: OXYCODONE HCL IR 5 MG TAB (IMMEDIATE RELEASE) PO PRN ×4 (04:54→23:01)
[2018-12-30] MEDS: POLYETHYLENE (MIRALAX) 17 GM PACK PO SCH ×3 (04:55→17:48)
[2018-12-30] MEDS: SODIUM CHLORIDE 0.9% 1000ML 1,000 ML IV SCH (04:56)
[2018-12-30 05:35] LABS: Basophils # (auto) 0.02 K/uL (0-0.2); Basophils % (auto) 0.2 %; Eosinophils # (auto) 0.11 K/uL (0-0.5); Hematocrit (blood only) 32.8 % (37-47); Hemoglobin 10.7 g/dL (12.0-16.0); Immature Granulocytes # (auto) 0.02 K/uL (0.00-0.02); Immature Granulocytes % (auto) 0.2 %; Lymphocytes # (auto) 2.71 K/uL (1.2-3.4); Lymphocytes % (auto) 25.9 %; Mean Corpuscular Hemoglobin 31.9 pg (25-34); Mean Corpuscular Hgb Conc 32.6 g/dL (32-36); Mean Corpuscular Volume 97.9 fL (80-100); Mean Platelet Volume 10.2 fL (7.4-10.4); Monocytes # (auto) 1.26 K/uL (0.11-0.59); Neutrophils # (auto) 6.36 K/uL (1.4-6.5); Neutrophils % (auto) 60.7 %; Platelet Count 165 K/uL (130-400); RDW Coefficient of Variation 13.4 % (11.5-14.5); RDW Standard Deviation 47.9 fL (36.4-46.3); Red Blood Count 3.35 M/uL (4.2-5.4); White Blood Count 10.48 K/uL (4.8-10.8)
[2018-12-30 06:07] LABS: BUN Creatinine Ratio 11.7 (10-20); Creatinine Clr Calc Pharmacy 30.7 ml/min; Est GFR (African American) 46.7; Est GFR (Non-African American) 40.3; Potassium 3.7 mmol/L (3.5-5.1)
[2018-12-30] MEDS: HYDROmorphone INJ 1 MG/ML SYRINGE IV PRN ×4 (06:17→20:28)
--- NOTE | 2018-12-30 07:45 | Anesthesiology Progress Note ---
Date of Service December 30, 2018 Anesthesia Post Procedure Vital Signs Vital Signs: Temp Pulse Pulse Resp BP BP Pulse Ox 12/30/18 02:30 37.1 C 82 16 124/65 92 12/29/18 23:25 37.2 C 86 14 125/55 L 92 12/29/18 18:33 36.8 C 91 H 17 118/67 93 12/29/18 17:20 83 20 117/67 96 12/29/18 15:43 36.7 C 85 18 128/74 98 12/29/18 14:13 82 19 139/70 95 12/29/18 13:49 36.6 C 91 H 18 146/68 H 100 12/29/18 13:30 90 16 149/61 H 97 12/29/18 13:15 87 16 153/56 H 93 12/29/18 13:05 36.6 C 93 H 16 154/82 H 94 12/29/18 12:55 81 16 151/65 H 100 12/29/18 12:45 80 17 151/62 H 100 12/29/18 12:35 81 16 149/60 H 100 12/29/18 12:29 36.4 C L 87 15 177/72 H 100 12/29/18 09:41 36.6 C 95 H 20 182/80 H 95 Pain Intensity Right Neck: Pain Intensity: 3 Back: Pain Intensity: 10 Notes Mental Status: alert / awake / arousable and participated in evaluation Patient Amnestic to Procedure: Yes Nausea / Vomiting: improving with treatment Pain: adequately controlled Airway Patency, RR, SpO2: stable & adequate BP & HR: stable & adequate Hydration State: stable & adequate Anesthetic Complications: no major complications apparent and Pt Satisfied with anesthetic care
[2018-12-30] MEDS: INSULIN ASPART 100 UNITS/ML 3 ML PEN SC SCH ×4 (08:39→21:40)
[2018-12-30] MEDS: CHOLECALCIFEROL 1,000 UNITS TAB PO SCH (08:40)
[2018-12-30] MEDS: POTASSIUM CHLORIDE 10 MEQ TABCR PO SCH ×2 (08:40→21:42)
[2018-12-30] MEDS: DULOXETINE HCL 60 MG CAP PO SCH (08:40)
[2018-12-30] MEDS: GABAPENTIN 600 MG TAB PO SCH ×2 (08:41→21:42)
[2018-12-30] MEDS: GABAPENTIN 100 MG CAP PO SCH ×2 (08:41→21:41)
[2018-12-30] MEDS: DOCUSATE SODIUM 100 MG CAP PO SCH ×2 (08:41→21:39)
[2018-12-30] MEDS: METOPROLOL TARTRATE 25 MG TAB PO SCH ×2 (08:41→21:42)
[2018-12-30] MEDS: BACLOFEN 10 MG TAB PO SCH ×2 (08:42→21:41)
[2018-12-30] MEDS: FUROSEMIDE 80 MG TAB PO SCH (08:42)
[2018-12-30] MEDS: cycloSPORINE (RESTASIS) OPB SCH ×2 (08:43→21:42)
[2018-12-30] MEDS: INSULIN GLARGINE SOLOSTAR 100 UNITS/ML 3 ML PEN SC SCH ×2 (08:43→21:40)
[2018-12-30] MEDS ORDERED: NON-FORMULARY MEDICATION (Biotin 5,000 MCG) PO SCH (09:00)
[2018-12-30] MEDS ORDERED: POLYETHYLENE (MIRALAX) 17 GM PACK PO SCH (09:00)
[2018-12-30] MEDS ORDERED: Nursing to Pharmacy Communication ONE (10:15)
[2018-12-30] MEDS ORDERED: COUGH DROP (SUGAR FREE) LOZ 24 LOZ/1 BOX BUCCAL PRN (10:18)
--- NOTE | 2018-12-30 11:12 | Orthopedic Progress Note ---
Date of Service December 30, 2018 Assessment & Plan (1) Spinal stenosis, lumbar region with neurogenic claudication: This time patient will continue physical therapy we will monitor her YENI output hopefully discharge home the next few days. She was requesting home health. Present on Admission?: Yes Subjective Back pain controlled leg symptoms improved. Physical Exam Physical Exam: Patient is in the chair at the bedside. Is good strength testing. Appears comfortable. Results & Data Vital Signs (Past 12 Hours) Vital Signs Temp Pulse Resp BP Pulse Ox 12/30/18 07:55 37.5 C 72 18 107/60 95 12/30/18 02:30 37.1 C 82 16 124/65 92 12/29/18 23:25 37.2 C 86 14 125/55 L 92
--- NOTE | 2018-12-30 16:43 | Hospitalist Progress Note ---
Date of Service December 30, 2018 Assessment & Plan (1) Spinal stenosis, lumbar region with neurogenic claudication: s/p lumbar decompression/fusion by Dr. Gutierrez POD #1 Monitor for postop anemia Continue bowel regimen to prevent constipation Pain control, wound care, activity, DVT prophylaxis as per primary team (2) Chronic diastolic CHF (congestive heart failure): No signs of volume overload Continue home Lasix 80 mg daily Monitor renal function, electrolytes when hospitalized (3) Esophageal reflux disease: controlled with dietary modifications at home Pepcid as needed (4) Dyslipidemia: Continue statin (5) Diabetic neuropathy: Continue gabapentin 700 mg BID (6) Insulin-requiring or dependent type II diabetes mellitus: Last A1c on 11/28/18 was 8.8 Continue ISS Increase Lantus to 15 units BID Monitor BGs (7) Hypertension: BP stable Continue metoprolol (8) COPD (chronic obstructive pulmonary disease): No signs of exacerbation On albuterol inhaler as needed (9) Stage 3 chronic kidney disease: Baseline Cr:1.3-1.4 Cr at baseline monitor renal function DVT Px: As per Primary Team Code Status Full Code Disposition: As per Primary Team Subjective Patient is seen and examined at bedside Back pain at surgical site is controlled Denies any chest pain, SOB, nausea, dizziness, abd pain Had PT earlier today Offers no other complaints Review of Systems Review of Systems: All systems reviewed & are unremarkable except as noted in HPI & below Physical Exam Physical Exam: Physical Exam: Vitals signs as noted above General Appearance:Moderately built and nourished, no apparent distress Head: normocephalic, Atraumatic Eyes: normal inspection, EOMI Neck: supple, Trachea midline Respiratory/Chest: Normal breath sounds, CTA Cardiovascular: S1, S2, No murmur Abdomen/GI:Soft, Non tender, Bowel sounds present Back: Surgical site in dressing, +drain Extremities/Musculoskelatal:normal inspection, no edema Neurologic/Psych:AAOX3, grossly no focal neurological deficits Skin: normal color, warm Results & Data Vital Signs (Past 12 Hours) Vital Signs Temp Pulse Resp BP Pulse Ox 12/30/18 16:18 37.7 C H 85 16 129/69 93 12/30/18 11:17 94 12/30/18 11:15 93 12/30/18 07:55 37.5 C 72 18 107/60 95 Laboratory Results Short CBC 12/30/18 Range/Units 04:49 WBC 10.48 (4.8-10.8) K/uL Hgb 10.7 L (12.0-16.0) g/dL Hct 32.8 L (37-47) % Plt Count 165 (130-400) K/uL BMP 12/29/18 12/30/18 21:34 04:49 Sodium 136 135 L Potassium 3.6 3.7 Chloride 102 100 Carbon Dioxide 27 28 BUN 18 15 Creatinine 1.29 H 1.28 H Glucose 186 H 163 H Calcium 8.3 L 8.0 L (1) Esophageal reflux disease Esophagitis presence: esophagitis presence not specified Qualified Code(s): K21.9 - Gastro-esophageal reflux disease without esophagitis (2) Diabetic neuropathy Diabetes mellitus type: type 2 Diabetes mellitus complication detail: diabetic polyneuropathy Qualified Code(s): E11.42 - Type 2 diabetes mellitus with diabetic polyneuropathy (3) Hypertension Hypertension type: essential hypertension Qualified Code(s): I10 - Essential (primary) hypertension (4) COPD (chronic obstructive pulmonary disease) COPD type: emphysema Emphysema type: unspecified Qualified Code(s): J43.9 - Emphysema, unspecified
[2018-12-30] MEDS: TRAZODONE HCL 50 MG TAB PO SCH (21:41)
[2018-12-30] MEDS: DOCUSATE SODIUM/SENNA 50/8.6MG TAB PO SCH (21:41)
[2018-12-30] MEDS: MIRTAZAPINE TAB 15 MG TAB PO SCH (21:41)
[2018-12-30] MEDS: SIMVASTATIN 40 MG TAB PO SCH (21:42)
[2018-12-31] MEDS: HYDROmorphone INJ 1 MG/ML SYRINGE IV PRN ×5 (00:15→18:20)
[2018-12-31] MEDS: POLYETHYLENE (MIRALAX) 17 GM PACK PO SCH ×4 (00:15→18:18)
[2018-12-31] MEDS: CHOLECALCIFEROL 1,000 UNITS TAB PO SCH (07:25)
[2018-12-31] MEDS: GABAPENTIN 100 MG CAP PO SCH ×2 (07:25→21:15)
[2018-12-31] MEDS: POTASSIUM CHLORIDE 10 MEQ TABCR PO SCH ×2 (07:25→21:16)
[2018-12-31] MEDS: GABAPENTIN 600 MG TAB PO SCH ×2 (07:26→21:14)
[2018-12-31] MEDS: METOPROLOL TARTRATE 25 MG TAB PO SCH ×2 (07:26→21:14)
[2018-12-31] MEDS: cycloSPORINE (RESTASIS) OPB SCH ×2 (07:27→21:16)
[2018-12-31] MEDS: DULOXETINE HCL 60 MG CAP PO SCH (07:27)
[2018-12-31] MEDS: DOCUSATE SODIUM 100 MG CAP PO SCH ×2 (07:27→21:16)
[2018-12-31] MEDS: FUROSEMIDE 80 MG TAB PO SCH (07:27)
[2018-12-31] MEDS: BACLOFEN 10 MG TAB PO SCH ×2 (07:27→21:14)
[2018-12-31] MEDS: INSULIN GLARGINE SOLOSTAR 100 UNITS/ML 3 ML PEN SC SCH ×2 (07:28→21:13)
[2018-12-31] MEDS: INSULIN ASPART 100 UNITS/ML 3 ML PEN SC SCH ×4 (07:29→21:13)
[2018-12-31 09:26] LABS: Hematocrit (blood only) 30.6 % (37-47); Hemoglobin 10.1 g/dL (12.0-16.0); Mean Corpuscular Volume 96.8 fL (80-100); Mean Platelet Volume 9.1 fL (7.4-10.4); Platelet Count 143 K/uL (130-400); RDW Coefficient of Variation 13.2 % (11.5-14.5); RDW Standard Deviation 46.6 fL (36.4-46.3); Red Blood Count 3.16 M/uL (4.2-5.4)
[2018-12-31 09:52] LABS: BUN Creatinine Ratio 11.1 (10-20); Calcium 9.1 mg/dl (8.5-10.1); Creatinine Clr Calc Pharmacy 27.5 ml/min; Est GFR (African American) 40.8; Est GFR (Non-African American) 35.2; Potassium 4.4 mmol/L (3.5-5.1)
--- NOTE | 2018-12-31 09:56 | Hospitalist Progress Note ---
Date of Service December 31, 2018 Assessment & Plan (1) Spinal stenosis, lumbar region with neurogenic claudication: S/p lumbar decompression/fusion by Dr. Gutierrez POD #2 Monitor for postop anemia Will add ducolax to bowel regimen Pain control, wound care, activity, DVT prophylaxis as per primary team (2) Electrolyte abnormality: Sodium of 129 which corrects to 132 when accounting for hyperglycemia, Cl of 96 -Will plan to hold tomorrow's Lasix dose in setting of electrolyte abnormality, increasing Cr -Daily BMP (3) Chronic diastolic CHF (congestive heart failure): Appears dry today on exam and labwork Holding home Lasix 80 mg tomorrow (4) Esophageal reflux disease: controlled with dietary modifications at home Pepcid as needed (5) Dyslipidemia: Continue statin (6) Diabetic neuropathy: Continue gabapentin 700 mg BID (7) Insulin-requiring or dependent type II diabetes mellitus: Last A1c on 11/28/18 was 8.8 Takes 50u Lantus qAM at home, BSG remains high in hospital Will increase Lantus dose with sliding scale Monitor BSGs (8) Hypertension: BP stable Continue metoprolol (9) COPD (chronic obstructive pulmonary disease): No signs of exacerbation On albuterol inhaler as needed (10) Stage 3 chronic kidney disease: Baseline Cr:1.3-1.4, slightly increased so will hold Lasix dose tomorrow Cr at baseline Monitor renal function DVT Px: As per Primary Team Code Status Full Code Patient seen in collaboration with Dr. Bright. Please see addendum. Supervising Physician Co-Signing Physician Notes Patient is seen and examined at bedside. Complaints of back pain at surgical site after having physical therapy earlier today. Also reports constipation. Offers no other complaints. On exam patient is moderately built and nourished, no apparent distress, normocephalic atraumatic, lungs are clear to auscultation, S1-S2, no murmur, abdomen soft nontender, back--surgical site in dressing, drain, grossly no focal neurological deficits. S/p lumbar decompression/fusion by Dr. Gutierrez POD #2. Agree with adding Dulcolax for constipation. Hyponatremia, hypochloremia noted on labs. Agree with holding Lasix for now. Also noted mild leukocytosis. Urinalysis not suggestive of UTI. Adjusted Lantus dose to better control blood glucose levels. Monitor electrolytes, renal function, blood sugar levels, drain output. Postop--acute blood loss anemia noted. No indications for blood transfusion currently. I personally reviewed the record. Patient is interviewed and examined at bedside. Patient's care is coordinated with Hilaria Minor PA-C. Please refer to the documentation above for details of patient's presentation and for discussion of other issues. Subjective Patient is seen and examined in 308-1. Sitting in bedside chair reading paper. Back pain at surgical site is controlled. Denies numbness or paresthesias to lower extremities. Denies any fever, chills, lightheadedness, chest pain, SOB, nausea, vomiting, abdominal pain, dysuria or diarrhea. Tolerated PT well earlier today. Not passing flatus and BM yet. States that she takes 3 ducolax pills at once 2x/week at home to have bowel movements. Miralax does not work for her. Review of Systems Review of Systems: At least ten systems reviewed and negative except as noted in the HPI. Physical Exam Physical Exam: General Appearance: WD/WN, vitals as above, sitting in bedside chair, pleasant, conversing easily Head: normocephalic, atraumatic Eyes: normal inspection, PERRL, conjunctivae normal, anicteric sclerae ENT: external ear and nose normal, oropharynx normal Neck: trachea midline, no thyromegaly normal visual inspection Respiratory: lungs clear to auscultation, no wheeze, rales, rhonchi. Normal insp/exp effort, no accessory muscle use Cardiovascular: regular rate, rhythm, no murmur, normal peripheral pulses. Vessels: no JVD or carotid bruit Chest: normal inspection of chest Abdomen/GI: normal bowel sounds, soft, nontender, no hepatosplenomegaly Extremities/Musculoskelatal: +lumbosacral dressing clean, dry, intact. YENI drain visualized with minimal output. No cyanosis or clubbing, extremities motor strength 5/5 Neurologic: PERRL, EOMI, CN's II-XI intact bilaterally and moves all extremities Psychiatric: A+Ox3, euthymic affect Skin: no rashes, normal color, warm/dry Results & Data Vital Signs (Past 12 Hours) Vital Signs Temp Pulse Resp BP Pulse Ox 12/31/18 06:54 36.9 C 80 18 129/70 96 12/30/18 23:36 37.4 C 82 18 120/78 97 Laboratory Results Short CBC 12/31/18 Range/Units 09:11 WBC 13.50 H (4.8-10.8) K/uL Hgb 10.1 L (12.0-16.0) g/dL Hct 30.6 L (37-47) % Plt Count 143 (130-400) K/uL BMP 12/31/18 09:11 Sodium 129 L Potassium 4.4 D Chloride 96 L Carbon Dioxide 28 BUN 16 Creatinine 1.43 H Glucose 249 H Calcium 9.1 (1) Diabetic neuropathy Diabetes mellitus complication detail: diabetic polyneuropathy Diabetes mellitus type: type 2 Qualified Code(s): E11.42 - Type 2 diabetes mellitus with diabetic polyneuropathy (2) COPD (chronic obstructive pulmonary disease) COPD type: emphysema Emphysema type: unspecified Qualified Code(s): J43.9 - Emphysema, unspecified (3) Esophageal reflux disease Esophagitis presence: esophagitis presence not specified Qualified Code(s): K21.9 - Gastro-esophageal reflux disease without esophagitis (4) Hypertension Hypertension type: essential hypertension Qualified Code(s): I10 - Essential (primary) hypertension
[2018-12-31] MEDS ORDERED: BISACODYL 5 MG TABEC PO ONE (10:52)
[2018-12-31] MEDS: BISACODYL 10 MG SUPP PR PRN ×2 (11:13→12:44)
--- NOTE | 2018-12-31 14:14 | Orthopedic Progress Note ---
Date of Service December 31, 2018 Assessment & Plan (1) Spinal stenosis, lumbar region with neurogenic claudication: At this time continue physical therapy monitor her YENI output anticipate discharge home tomorrow. Present on Admission?: Yes Subjective Patient's back pain is controlled leg symptoms improved. Physical Exam Physical Exam: On exam she is in the chair at the bedside. Is good strength testing. Results & Data Vital Signs (Past 12 Hours) Vital Signs Temp Pulse Resp BP Pulse Ox 12/31/18 06:54 36.9 C 80 18 129/70 96
[2018-12-31] MEDS: OXYCODONE HCL IR 5 MG TAB (IMMEDIATE RELEASE) PO PRN ×2 (16:00→23:44)
[2018-12-31] MEDS: SIMVASTATIN 40 MG TAB PO SCH (21:15)
[2018-12-31] MEDS: MIRTAZAPINE TAB 15 MG TAB PO SCH (21:15)
[2018-12-31] MEDS: DOCUSATE SODIUM/SENNA 50/8.6MG TAB PO SCH (21:16)
[2018-12-31] MEDS: TRAZODONE HCL 50 MG TAB PO SCH (21:16)
[2019-01-01] MEDS: LORazepam 0.5 MG TAB PO PRN (00:59)
[2019-01-01] MEDS: OXYCODONE HCL IR 5 MG TAB (IMMEDIATE RELEASE) PO PRN (04:58)
[2019-01-01 05:09] LABS: Appearance Urine Clear (Clear); Bacteria Urine Automated Negative (Negative); Bilirubin Urine Negative (Negative); Blood Urine Trace (Negative); Color Urine Yellow; Glucose Urine UA Negative (Negative); Ketones Urine Trace (Negative); Leukocyte Esterase Urine 1+ (Negative); Nitrite Urine Negative (Negative); Protein Urine 1+ (Negative); RBC Urine Automated 0-4 /hpf (0-4); Specific Gravity Urine 1.016 (1.000-1.030); Urobilinogen Urine Negative (Negative)
[2019-01-01 06:54] LABS: Hematocrit (blood only) 29.2 % (37-47); Hemoglobin 9.5 g/dL (12.0-16.0); Mean Corpuscular Hgb Conc 32.5 g/dL (32-36); Mean Corpuscular Volume 98.3 fL (80-100); Mean Platelet Volume 9.8 fL (7.4-10.4); Platelet Count 147 K/uL (130-400); RDW Coefficient of Variation 13.3 % (11.5-14.5); RDW Standard Deviation 47.6 fL (36.4-46.3); Red Blood Count 2.97 M/uL (4.2-5.4); White Blood Count 10.69 K/uL (4.8-10.8)
[2019-01-01 07:22] LABS: BUN Creatinine Ratio 12.7 (10-20); Calcium 9.1 mg/dl (8.5-10.1); Creatinine Clr Calc Pharmacy 32.8 ml/min; Est GFR (African American) 50.5; Est GFR (Non-African American) 43.6; Magnesium 2.6 mg/dl (1.8-2.4); Potassium 4.3 mmol/L (3.5-5.1)
[2019-01-01] MEDS: HYDROmorphone INJ 1 MG/ML SYRINGE IV PRN (07:50)
[2019-01-01] MEDS: INSULIN ASPART 100 UNITS/ML 3 ML PEN SC SCH (07:56)
[2019-01-01] MEDS: INSULIN GLARGINE SOLOSTAR 100 UNITS/ML 3 ML PEN SC SCH (07:56)
[2019-01-01] MEDS: BACLOFEN 10 MG TAB PO SCH (08:00)
[2019-01-01] MEDS: DOCUSATE SODIUM 100 MG CAP PO SCH (08:00)
[2019-01-01] MEDS: METOPROLOL TARTRATE 25 MG TAB PO SCH (08:00)
[2019-01-01] MEDS: CHOLECALCIFEROL 1,000 UNITS TAB PO SCH (08:00)
[2019-01-01] MEDS: GABAPENTIN 100 MG CAP PO SCH (08:00)
[2019-01-01] MEDS: GABAPENTIN 600 MG TAB PO SCH (08:00)
[2019-01-01] MEDS: DULOXETINE HCL 60 MG CAP PO SCH (08:01)
[2019-01-01] MEDS: cycloSPORINE (RESTASIS) OPB SCH (08:01)
[2019-01-01] MEDS: POTASSIUM CHLORIDE 10 MEQ TABCR PO SCH (08:01)
[2019-01-01] MEDS ORDERED: INSULIN GLARGINE SOLOSTAR 100 UNITS/ML 3 ML PEN SC SCH (09:00)
[2019-01-01] MEDS ORDERED: SODIUM CHLORIDE 1 GM TABLET PO SCH (09:15)
--- NOTE | 2019-01-01 10:18 | Discharge Summary ---
Date of Service January 01, 2019 Admission HPI Per Admitting Provider This is a 78-year-old female who presents with chronic persistent back and leg pain. Failing extensive course of nonoperative care is here for surgical intervention. Principal Diagnosis Lumbar spinal stenosis with neurogenic claudication Discharge Data Allergies Allergy/AdvReac Type Severity Reaction Status Date / Time Bactrim Allergy Unknown RASH Verified 07/01/14 05:51 capsaicin Allergy Unknown localized Verified 12/29/18 09:31 swelling and SOB diclofenac Allergy Unknown localized Verified 12/29/18 09:31 swelling and SOB Diclopak Allergy Unknown localized Verified 07/01/14 05:51 SWELLING and SOB iodine Allergy Unknown skin Verified 12/29/18 09:31 blisters isopropyl alcohol Allergy Unknown localized Verified 12/29/18 09:31 swelling and SOB methylprednisolone Allergy Unknown swelling, Verified 12/29/18 09:31 SOB, rash Penicillins Allergy Unknown rash, Verified 12/29/18 09:31 swelling, trouble breathing pregabalin Allergy Unknown airway Verified 12/29/18 09:31 swelling propranolol Allergy Unknown RASH Verified 12/29/18 09:31 propylene glycol Allergy Unknown localized Verified 12/29/18 09:31 swelling and SOB shellfish derived Allergy Unknown airway Verified 12/29/18 09:31 swelling, n/v sulfamethoxazole Allergy Unknown RASH Verified 12/29/18 09:31 tetracycline Allergy Unknown RED RASH Verified 12/29/18 09:31 trimethoprim Allergy Unknown RASH Verified 12/29/18 09:31 verapamil Allergy Unknown RASH Verified 12/29/18 09:31 aspirin AdvReac Unknown n/v Verified 12/29/18 09:31 codeine AdvReac Unknown n/v Verified 12/29/18 09:31 morphine AdvReac Unknown headache, Verified 12/29/18 09:31 nausea NSAIDS (Non-Steroidal AdvReac Unknown advised to Verified 12/29/18 09:31 Anti-Inflamma avoid- CKD stage III A&D OINMENT Allergy Unknown SWELLING Uncoded 12/29/18 09:31 AND HIVES CLE[employer]PPLIES Allergy Unknown RASH Uncoded 12/29/18 09:31 SOAPS Allergy Unknown RASH Uncoded 12/29/18 09:31 STEROIDS Allergy Unknown SWELLING, Uncoded 12/29/18 09:31 SOB AND RASH Consultations 12/29/18 14:09 Consult Case Management - Discharge Planning Routine Consult Hospitalist Routine Procedures Performed Operation Date: 12/29/18 10:25 Actual Procedures p L2-L3, L3-L4 Decompression and Fusion, with Spinal Cord Monitoring(Not Applicable) - Adan Gutierrez DO Ordered Studies 12/29/18 10:25 FL fluoroscopy <1hr Routine FL lumbar spine 2-3V Routine Hospital Course (1) Spinal stenosis, lumbar region with neurogenic claudication: Patient went lumbar decompression fusion tolerated this well was taken to the orthopedic for postoperative. Postop day 1 she was up and ambulating progressed to postop day #2 postop day #3 she is good strength testing was comfortable YENI drain decreased appropriately. Subsequent discharge home. Discharge orders instructions from the chart for further review. Total Time Total Time Spent Total Time Spent (In Minutes): 20 minutes Discharge Plan Discharge Items Patient Disposition: Home - Home Health Services Reason For Visit: Other Intervertebral Disc Degeneration, Lumbar Reg Discharge Diagnosis: Lumbar spinal stenosis with neurogenic claudication Activity: As commented below Non-emergency contact: Primary Care Provider Call non-emergency contact if: you have any medication questions Follow-up/Referrals: Elana Whittington MD [Primary Care Provider] - Diet: Regular Addtl Attending Provider Instructions: ACTIVITY RECOMMENDATIONS: SELF CARE INSTRUCTIONS AFTER THORACIC/LUMBAR FUSIONS 1. You may walk to your tolerance. It is good exercise for your legs and back. Expect some back and intermittent leg aches and pains. 2. You may perform "counter-top" level activities (make a sandwich, amanda with a project, etc.). 3. No bending or lifting of more than 10 pounds or back twisting of any nature (roll like a log when turning in bed). 4. You may ride in a car for 20-30 minutes at a time. No driving until after your first visit with your doctor. 5. Frequent changes of position and restricting sitting to 30 minutes at a time will help limit the amount of back spasms and stiffness you may experience. 6. You may discontinue the use of ambulatory aids (cane, crutches, etc.) once your strength and confidence allow. 7. You may component inspector the shower and let water strike your incision when you arrive home at least once daily. Do not take a tub bath, sit in a hot tub or go into a swimming pool until after your first recheck in the office. SPECIAL CARE INSTRUCTIONS: VERY IMPORTANT TO READ AND REVIEW A. Your surgical incision has been closed with a cosmetic suture under the skin that will dissolve in about 6 weeks. In 14 days, you can use a pair of clean scissors and cut the suture that is left outside of the skin at the ends of your incision. 1. The small skin tapes can be removed 7 days after surgery if they have not fallen off by that point. 2. You may keep the wound open to air as much as possible to promote healing after post-op day number 5 unless told otherwise by your doctor. 3. If you think the wound looks like it is becoming infected (redness or worsening drainage) and/or you are experiencing fever, chill or worsening back pain and muscle spasms, contact the office so that we may evaluate you as soon as possible. B. Complications are uncommon, but please contact us if you have any signs or symptoms of: 1. wound infection (fever higher than 102.5 degrees F, redness, separation of wound, drainage, or increasing pain from the incision) 2. blood clots in legs (pain, swelling, redness and warmth in legs) 3. urinary tract infection (fever higher than 102.5 degrees F, burning upon urination or increased frequency of urination) 4. nerve problems (inability to walk on your toes or heels, numbness, loss of bowel or bladder control) 5. any other symptoms that concern you C. Please call the office at if you have any concerns or questions about your operation or recovery. D. No smoking! Smoking drastically decreases the chance of a solid fusion. E. Do not take any anti-inflammatory medications (Indocin, Advil, Motrin, Aspirin, Naprosyn, etc.) as these may inhibit the chance of a solid fusion. Tylenol is okay to take for pain. MANAGING PAIN AFTER SPINAL SURGERY 1. Narcotic medication is intended for short-term use and will be provided for surgical pain. Surgical pain usually lasts for a period of 4-6 weeks. Narcotic medication includes Percocet, Vicodin, Darvocet, Tylenol #3 or Lortab. 2. Longer-term pain is more appropriately treated with non-narcotic medication such as Tylenol ES. 3. Muscle spasm is not appropriately treated with narcotics. Muscle relaxers such as Soma, Flexeril or Skelaxin can be used along with Tylenol ES. 4. Remember that we all live with some "aches and pains". This is not unusual or uncommon after an injury or as we get older. a. Back pain is expected and may include muscle spasms for 4 to 6 weeks after surgery. The pain should gradually improve. If the pain worsens for no apparent reason, please contact the office. b. Intermittent leg pain may also be experienced and should not be concerned about unless it worsens for no apparent reason. If so, please contact the office. 5. We will provide appropriate medication within the normal guidelines of their prescribed use. We will also be very cautious and aware of potential abuse and extended duration of patients' medication needs. a. Pain medications are for your comfort and to assist with sleep and rest so that the tissue can heal. They are not provided in order to return to normal activity and should not be used through the day. To do so or worsening pain at night can result from ongoing tissue damage and development of tolerance to the prescribed medicine. 6. Please allow 2-3 days to process refills. Prescriptions will not be mailed but must be picked up at the office. FOLLOW UP VISIT: Keep your scheduled follow-up appointment. Any questions, please call the office at . Pending Studies at Discharge: No Stand-Alone Forms: [facility], Smoking Cessation Medications and DC Order Prescriptions: New oxycodone 5 mg tablet 5 mg PO Q6H PRN (Reason: pain, severe) Qty: 30 RF: 0 Continued gabapentin 600 mg Tablet 600 mg PO BID RF: 0 potassium chloride 8 mEq Capsule, Extended Release 8 meq PO BID RF: 0 trazodone 50 mg Tablet 50 mg PO HS RF: 0 polyethylene glycol 3350 [Miralax] 17 gram Powder In Packet 17 g PO DAILY PRN (Reason: Constipation) RF: 0 prochlorperazine maleate 5 mg Tablet 5 mg PO Q8H PRN (Reason: Nausea And Vomiting) RF: 0 acetaminophen [Acetaminophen Extra Strength] 500 mg Tablet 1,000 mg PO UD PRN (Reason: Pain) RF: 0 simvastatin 40 mg Tablet 40 mg PO HS RF: 0 oxycodone-acetaminophen 10-325 mg Tablet 1 tab PO TID PRN (Reason: Pain) RF: 0 furosemide 80 mg Tablet 80 mg PO DAILY RF: 0 baclofen 10 mg Tablet 10 mg PO BID RF: 0 diphenhydramine HCl [Benadryl] 25 mg Capsule 50 mg PO HS RF: 0 nitroglycerin 0.4 mg Tablet, Sublingual 0.4 mg sublingual UD PRN (Reason: Chest Pain) RF: 0 docusate sodium [Stool Softener] 100 mg Capsule 100 mg PO BID RF: 0 gabapentin 100 mg Capsule 100 mg PO BID RF: 0 cholecalciferol (vitamin D3) [Vitamin D3] 1,000 unit Capsule 3,000 unit PO DAILY RF: 0 Novolog PenFill U-100 Insulin 100 unit/mL Cartridge 1 sliding scale dose SUBCUT USEASDIRECTD RF: 0 metoprolol tartrate 25 mg Tablet 12.5 mg PO BID RF: 0 mirtazapine 7.5 mg Tablet 7.5 mg PO HS RF: 0 duloxetine 60 mg Capsule,Delayed Release(Dr/Ec) 60 mg PO QAM RF: 0 Lantus Solostar U-100 Insulin 100 unit/mL (3 mL) Insulin Pen 50 unit SUBCUT QAM RF: 0 lidocaine 4 % Cream 1 applic TOPICAL UD PRN (Reason: NEUROPATHY PAIN IN LEGS) RF: 0 albuterol sulfate 90 mcg/actuation Hfa Aerosol Inhaler 1 - 2 puff INHALATION Q4H PRN (Reason: Shortness Of Breath Or Wheezing) RF: 0 Restasis 0.05 % dropperette 1 drp OPB BID RF: 0 biotin 1 mg Capsule 2 mg PO BID RF: 0 triamcinolone acetonide 0.1 % ointment 1 applic topical BID PRN (Reason: Rash) RF: 0 Discharge Orders: Discharge Order (Routine); Ordered 01/01/19 Ordered By: Adan Gutierrez Admission Data Admit Date/Time: 12/29/18 12:17 Attending Provider: Adan Gutierrez Admit Provider: Adan Gutierrez Primary Care Provider: Elana Whittington Other Providers: Carlos Alberto Carmona ; Keith Bright
--- NOTE | 2019-01-01 10:49 | Hospitalist Progress Note ---
Date of Service January 01, 2019 Assessment & Plan (1) Spinal stenosis, lumbar region with neurogenic claudication: POD #3 S/p lumbar decompression/fusion by Dr. Gutierrez -Monitor for postop anemia -Added Dulcolax to bowel regimen and had large BM -Pain control, wound care, activity, DVT prophylaxis as per primary team (2) Electrolyte abnormality: Sodium still 129 and Cl of 97 -Will plan to hold tomorrow's Lasix dose in setting of electrolyte abnormality, increasing Cr -Instructed to have 1 week follow up with PCP with repeat BMP (script provided, written in discharge instructions) -Daily BMP (3) Chronic diastolic CHF (congestive heart failure): Resume home Lasix 80 mg upon discharge (4) Esophageal reflux disease: Controlled with dietary modifications at home Pepcid as needed (5) Dyslipidemia: Continue statin (6) Diabetic neuropathy: Continue gabapentin 700 mg BID (7) Insulin-requiring or dependent type II diabetes mellitus: Last A1c on 11/28/18 was 8.8 Takes 50u Lantus qAM at home (recently decreased from 70 units daily). BSG remains in mid-200s in hospital Instructed to monitor BSG closely at home and follow up with PCP for possible insulin increase (8) Hypertension: BP stable Continue metoprolol (9) COPD (chronic obstructive pulmonary disease): No signs of exacerbation On albuterol inhaler as needed (10) Stage 3 chronic kidney disease: Baseline Cr:1.3-1.4 Cr at baseline Monitor renal function DVT Px: Today as per Primary Team Code Status Full Code Patient seen in collaboration with Dr. Bright. Please see addendum. Supervising Physician Co-Signing Physician Notes Patient is seen and examined at bedside. Back pain is controlled. Had bowel movement. Offers no other complaints. On exam patient is moderately built and nourished, no apparent distress, normocephalic atraumatic, lungs are clear to auscultation, S1-S2, no murmur, abdomen soft nontender, back--surgical site in dressing, drain, grossly no focal neurological deficits. S/p lumbar decompression/fusion by Dr. Gutierrez POD #3. Continue bowel regimen to prevent constipation. Hyponatremia, hypochloremia noted on labs. Advised to repeat basic metabolic panel in 1 week and follow-up with PCP with results. Salt tablets given today. Agree with holding Lasix for today. Leukocytosis resolved. Adjusted Lantus dose to better control blood glucose levels. Monitor electrolytes, renal function, blood sugar levels, drain output. Postop--acute blood loss anemia noted. No indications for blood transfusion currently. I personally reviewed the record. Patient is interviewed and examined at bedside. Patient's care is coordinated with Hilaria Minor PA-C. Please refer to the documentation above for details of patient's presentation and for discussion of other issues. Subjective Patient is seen and examined in 308-1. Sitting in bedside chair reading paper. Back pain at surgical site is controlled. Denies numbness or paresthesias to lower extremities. Denies any fever, chills, lightheadedness, chest pain, SOB, nausea, vomiting, abdominal pain, dysuria or diarrhea. Tolerated PT well earlier today. Passing flatus and had large BM yesterday. Primary service to discharge home today. Review of Systems Review of Systems: At least ten systems reviewed and negative except as noted in the HPI. Physical Exam Physical Exam: General Appearance: WD/WN, vitals as above, NAD, sitting in bedside chair, pleasant, conversing easily. Saturating in 90s on room air. Head: normocephalic, atraumatic Eyes: normal inspection, PERRL, conjunctivae normal, anicteric sclerae ENT: external ear and nose normal, oropharynx normal Neck: trachea midline, no thyromegaly normal visual inspection Respiratory: lungs clear to auscultation, no wheeze, rales, rhonchi. Normal insp/exp effort, no accessory muscle use Cardiovascular: regular rate, rhythm, no murmur, normal peripheral pulses. Vessels: no JVD or carotid bruit Chest: normal inspection of chest Abdomen/GI: normal bowel sounds, soft, nontender, no hepatosplenomegaly Extremities/Musculoskelatal: + Lumbosacral surgical dressing clean, dry, intact. +YENI drain with minimal output. No cyanosis or clubbing, extremities motor strength 5/5 Neurologic: PERRL, CN's II-XI intact bilaterally and moves all extremities Psychiatric: A+Ox3, euthymic affect Skin: no rashes, normal color, warm/dry Results & Data Vital Signs (Past 12 Hours) Vital Signs Temp Pulse Resp BP BP Pulse Ox 01/01/19 07:18 36.7 C 83 20 111/65 96 01/01/19 06:40 37.1 C 90 18 113/66 94 01/01/19 05:21 94 01/01/19 05:20 91 12/31/18 23:45 37.2 C 94 12/31/18 23:40 37.9 C H 83 16 115/64 88 L Laboratory Results Short CBC 01/01/19 Range/Units 06:25 WBC 10.69 (4.8-10.8) K/uL Hgb 9.5 L (12.0-16.0) g/dL Hct 29.2 L (37-47) % Plt Count 147 (130-400) K/uL BMP 01/01/19 06:25 Sodium 129 L Potassium 4.3 Chloride 97 L Carbon Dioxide 25 BUN 15 Creatinine 1.20 Glucose 228 H Calcium 9.1 Urine 01/01/19 Range/Units 05:00 Urine Color Yellow Urine Appearance Clear (Clear) Urine pH 6.0 (4.5-7.5) Ur Specific [place] 1.016 (1.000-1.030) Urine Protein 1+ H (Negative) Urine Glucose (UA) Negative (Negative) (1) Diabetic neuropathy Diabetes mellitus complication detail: diabetic polyneuropathy Diabetes mellitus type: type 2 Qualified Code(s): E11.42 - Type 2 diabetes mellitus with diabetic polyneuropathy (2) COPD (chronic obstructive pulmonary disease) COPD type: emphysema Emphysema type: unspecified Qualified Code(s): J43.9 - Emphysema, unspecified (3) Esophageal reflux disease Esophagitis presence: esophagitis presence not specified Qualified Code(s): K21.9 - Gastro-esophageal reflux disease without esophagitis (4) Hypertension Hypertension type: essential hypertension Qualified Code(s): I10 - Essential (primary) hypertension
[2019-01-01] MEDS: FUROSEMIDE 80 MG TAB PO SCH (11:16)
[2019-01-02] MEDS ORDERED: FUROSEMIDE 80 MG TAB PO SCH (09:00)
== END 2019-01-01 12:47 | disposition home health service (06) | DRG 460 ==
LOC: ASU 08:50 → 3E 12:17